=== PATIENT | female | born 1975 | race Two or more races ===

== ENCOUNTER 2019-07-28 08:00 | Inpatient (IN) | payer OTHER ==
[~2019-07-28 08:00] MED LIST: LEVOTHYROXINE NA 75 MCG TABLET (FP) PO SCH
[2019-07-28] MEDS ORDERED: AMPICILLIN SODIUM 2 GM VIAL ONE (08:23)
[2019-07-28 08:43] VITALS: BMI 30.7
[2019-07-28 08:51] LABS: BASO % 0.8 % (0-2.0); EOS % 0.5 % (0-4.5); HEMATOCRIT 37.6 % (32.4-45.2); HEMOGLOBIN 12.7 GM/dL (10.7-15.3); LYMPH % 11.7 % (8-40); MCH 30.7 pg (25.7-33.7); MCHC 33.8 g/dl (32.0-36.0); MEAN CELL VOLUME 90.6 fl (80-96); MEAN PLT VOLUME 11.1 fl (7.5-11.1); MONO % 5.1 % (3.8-10.2); NEUT % 81.9 % (42.8-82.8); PLATELET COUNT 145 K/MM3 (134-434); RBC 4.14 M/mm3 (3.60-5.2); RDW 15.5 % (11.6-15.6); WHITE BLOOD COUNT 11.5 K/mm3 (4.0-10.0)
[2019-07-28 09:03] LABS: BLOOD UREA NITROGEN 7.1 mg/dL (7-18); CALCIUM 9.1 mg/dL (8.5-10.1); CREATININE 0.5 mg/dL (0.55-1.3); POTASSIUM 3.9 mmol/L (3.5-5.1)
--- NOTE | 2019-07-28 09:04 | HP ---
Past Medical History - Admission History of Present Illness: 43 y/o with SIUP at 37.4 weeks here in labor. complicated by hypothyroidism, GBS positive and AMA. H/o X 1 and SAB X 2. History Source: Patient, Medical Record Limitations to Obtaining History: No Limitations - Past Medical History Cardiovascular: No: HTN, [place] Pulmonary: No: Asthma, COPD Hepatobiliary: No: Hepatitis B, Hepatitis C Renal/: No: UTI Reproductive: No: Fibroids, PID ...: 4 ...Para: 1 ...Term: 1 ...: 0 ...Spon : 2 ...Induced : 0 ...Multiple Gestation: 0 ...EDC by [facility]: 08/14/19 Heme/Onc: No: Anemia Psych: No: Anxiety, Bipolar, Depression Endocrine: Yes: Hypothyroidism - Past Surgical History Past Surgical History: Yes: None Hx Myomectomy: No Hx Transabdominal Cerclage: No - Smoking History Smoking history: Never smoked Have you smoked in the past 12 months: No - Alcohol/Substance Use Hx Alcohol Use: No History of Substance Use: reports: None - Social History History of Recent Travel: No Home Medications - Allergies Allergies/Adverse Reactions: Allergies Allergy/AdvReac Type Severity Reaction Status Date / Time No Known Allergies Allergy Verified 07/30/16 14:16 - Home Medications Home Medications: Ambulatory Orders Levothyroxine [Synthroid -] 75 mcg PO DAILY 08/16/15 Vit/Iron Fum/Folic AC [ Tablet] 1 tab PO DAILY 07/30/16 Review of Systems - Review of Systems Constitutional: reports: No Symptoms Eyes: reports: No Symptoms HENT: reports: No Symptoms Neck: reports: No Symptoms Cardiovascular: reports: No Symptoms Respiratory: reports: No Symptoms Gastrointestinal: reports: No Symptoms Genitourinary: reports: No Symptoms Breasts: reports: No Symptoms Reported Musculoskeletal: reports: No Symptoms Integumentary: reports: No Symptoms Neurological: reports: No Symptoms Endocrine: reports: No Symptoms Hematology/Lymphatic: reports: No Symptoms Psychiatric: reports: No Symptoms Physical Exam - Maternity Vital Signs: Vital Signs Temperature 98.4 F 07/28/19 08:19 Pulse Rate 75 07/28/19 08:19 Respiratory Rate 20 07/28/19 08:19 Blood Pressure 136/90 07/28/19 08:19 O2 Sat by Pulse Oximetry (%) Constitutional: Yes: Well Nourished, No Distress, Calm Eyes: Yes: Conjunctiva Clear, EOM Intact HENT: Yes: Atraumatic, Normocephalic Neck: Yes: Supple, Trachea Midline Cardiovascular: Yes: Regular Rate and Rhythm Lungs: Clear to auscultation Breast(s): Yes: WNL - Abdominal Exam/OB Fundal Height: 37 Number of Fetuses: Single Presentation: Vertex Contractions: Yes Regularity: Regular Intensity: Mod/Strong Category: I Accelerations: Uniform Decelerations: None - Vaginal Exam/OB Speculum Exam: No Dilatation (cm): 7 Effacement (%): 80 Amniotic Membrane Status: Ruptured Nitrazine Test: Positive Amniotic Fluid: Yes: Clear Presentation: Vertex/Position - Physical Exam Psychiatric: Yes: Alert, Oriented - Labs Lab Results: CBC, BMP 07/28/19 08:25 Hemorrhage Risk Assessment - Risk Factors Medium Risk Factors: Yes: None High Risk Factors: Yes: None Risk Score: 1 Risk Level: Medium Risk Problem List - Problems (1) Active labor at term Code(s): [id number] - (2) AMA (advanced maternal age) multigravida 35+ Code(s): O09.529 - SUPERVISION OF ELDERLY MULTIGRAVIDA, UNSPECIFIED TRIMESTER (3) GBS (group B Streptococcus carrier), +RV culture, currently Code(s): O99.820 - STREPTOCOCCUS B CARRIER STATE COMPLICATING Assessment/Plan 43 y/o with SIUP at 37.4 weeks, labor FHTS at 1 admitted to L&D GBS positive, started ampicillin anticipate
[2019-07-28] MEDS ORDERED: AMPICILLIN - 2 GM in SODIUM CHLORIDE 100 ML IVPB ONE (09:05)
[2019-07-28 09:08] LABS: INR 0.9 (0.83-1.09); PROTHROMBIN TIME (PATIENT) 10.6 SEC (9.7-13.0)
[2019-07-28 09:11] LABS: ACTIVATED PTT 27.5 SECONDS (25.2-36.5)
[2019-07-28] MEDS ORDERED: ELECTROLYTE-148 SOLN 1,000 ML IV SCH (09:15)
[2019-07-28] MEDS ORDERED: LIDOCAINE HCL 1% PRESERVATIVE FREE - 30ML VIAL ONE (09:42)
[2019-07-28] MEDS ORDERED: OXYTOCIN 20 UNITS in 0.9% NS 20 UNIT/1,000 ML INFUS.BAG IV ONE (09:42)
--- NOTE | 2019-07-28 10:32 | PN ---
Delivery - Delivery Vaginal Delivery: No Problems Type of Anesthesia: Local Episiotomy/Laceration: 2nd degree EBL (cc): 250 Delivery, Single - Stages of Labor Date of Delivery: 07/28/19 Time of Delivery: 10:13 Date Placenta Delivered: 07/28/19 Time Placenta Delivered: Placenta: Yes: Spontaneous - Condition of Word Processor Technician/Semiconductor Processing Group Leader Present: No Infant Gender: Male Position: Left, OA - 1 Minute Total Score: 9 5 Minutes Total Score: 9 - [place] Feeding Plan Initial Plan: Elected not to breastfeed exclusively throughout hospitalization Remarks - Remarks Remarks: Uncomplicated of baby boy from AVINASH position anterior shoulder (right) delivered with ease along with remainder of 3vc noted, clamped and cut after 1 minute of delayed cord clamping 2nd degree lac noted, repaired with 2-0 chromic in usual fashion placenta delivered in tact spontaneously sponge and needle count correct mom stable baby to well baby nursery oxytocin infusing after delivery
[2019-07-28] MEDS ORDERED: METHYLERGONOVINE MALEATE 0.2 MG/1 ML AMP IM PRN (10:58)
[2019-07-28] MEDS ORDERED: BENZOCAINE 28 GM HEMORRHOIDAL OINTMENT TP PRN (10:58)
[2019-07-28] MEDS ORDERED: BENZOCAINE 20% 57 GM BOTTLE TP PRN (10:58)
[2019-07-28] MEDS ORDERED: BISACODYL 10 MG SUPP.RECT RC PRN (10:58)
[2019-07-28] MEDS ORDERED: ACETAMINOPHEN 325 MG TABLET (FP) PO PRN (10:58)
[2019-07-28] MEDS ORDERED: IBUPROFEN 600 MG TABLET (FP) PO PRN (10:58)
[2019-07-28] MEDS ORDERED: WITCH HAZEL 50% (TUCKS) 40 PAD/JAR PAD TP PRN (10:58)
[2019-07-28] MEDS ORDERED: OXYTOCIN 20 UNITS in 0.9% NS 20 UNIT/1,000 ML INFUS.BAG IV SCH (11:00)
[2019-07-29] MEDS: LEVOTHYROXINE NA 75 MCG TABLET (FP) PO SCH (06:20)
--- NOTE | 2019-07-29 07:41 | PN ---
Post Progress Note - Subjective Subjective: Pt seen/evaluated and doing well. NO complaints. Denies pain. Tolerating diet. Ambulating and voiding. Type of Delivery: Vital Signs: Vital Signs Temperature 98.6 F 07/29/19 06:12 Pulse Rate 74 07/29/19 06:12 Respiratory Rate 18 07/29/19 06:12 Blood Pressure 111/67 07/29/19 06:12 O2 Sat by Pulse Oximetry (%) 100 07/28/19 11:15 Uterus: Yes: Fundus Firm Abdomen/GI: Yes: Abdomen soft Lochia: Yes: Rubra Lochia, amount: Small Extremities: Yes: Calves non-tender Perineum: Yes: Laceration Activity: Ambulating - Labs Labs: CBC WBC 11.5 K/mm3 (4.0-10.0) H 07/28/19 08:25 RBC 4.14 M/mm3 (3.60-5.2) 07/28/19 08:25 Hgb 12.7 GM/dL (10.7-15.3) 07/28/19 08:25 Hct 37.6 % (32.4-45.2) D 07/28/19 08:25 MCV 90.6 fl (80-96) 07/28/19 08:25 MCH 30.7 pg (25.7-33.7) 07/28/19 08:25 MCHC 33.8 g/dl (32.0-36.0) 07/28/19 08:25 RDW 15.5 % (11.6-15.6) 07/28/19 08:25 Plt Count 145 K/MM3 (134-434) D 07/28/19 08:25 MPV 11.1 fl (7.5-11.1) 07/28/19 08:25 Absolute Neuts (auto) 9.4 K/mm3 (1.5-8.0) H 07/28/19 08:25 Neutrophils % 81.9 % (42.8-82.8) 07/28/19 08:25 Lymphocytes % 11.7 % (8-40) 07/28/19 08:25 Monocytes % 5.1 % (3.8-10.2) 07/28/19 08:25 Eosinophils % 0.5 % (0-4.5) D 07/28/19 08:25 Basophils % 0.8 % (0-2.0) 07/28/19 08:25 Nucleated RBC % 0 % (0-0) 07/28/19 08:25 Problem List - Problems (1) Active labor at term Code(s): PII1658 - (2) AMA (advanced maternal age) multigravida 35+ Code(s): O09.529 - SUPERVISION OF ELDERLY MULTIGRAVIDA, UNSPECIFIED TRIMESTER (3) GBS (group B Streptococcus carrier), +RV culture, currently Code(s): O99.820 - STREPTOCOCCUS B CARRIER STATE COMPLICATING (4) Vaginal delivery Code(s): O80 - ENCOUNTER FOR FULL-TERM UNCOMPLICATED DELIVERY Assessment/Plan regular diet PO pain meds await [facility] routine care
[2019-07-29 08:40] LABS: BASO % 0.8 % (0-2.0); EOS % 0.9 % (0-4.5); HEMATOCRIT 33.4 % (32.4-45.2); LYMPH % 21.3 % (8-40); MCH 30.3 pg (25.7-33.7); MEAN CELL VOLUME 91.7 fl (80-96); MEAN PLT VOLUME 11.5 fl (7.5-11.1); PLATELET COUNT 154 K/MM3 (134-434); RBC 3.64 M/mm3 (3.60-5.2); RDW 15.8 % (11.6-15.6); WHITE BLOOD COUNT 11.1 K/mm3 (4.0-10.0)
[2019-07-29] MEDS: PRENATAL VITAMINS W/ FOLIC ACID TABLET (FP) PO SCH (09:48)
[2019-07-29] MEDS ORDERED: SENNOSIDES/DOCUSATE COMBO (SENNA PLUS) TABLET (UD) PO PRN (22:00)
[2019-07-30] MEDS: LEVOTHYROXINE NA 75 MCG TABLET (FP) PO SCH (06:21)
[2019-07-30 08:40] VITALS: BP 122/72; PULSE 67; TEMP 98.2
[2019-07-30] MEDS: PRENATAL VITAMINS W/ FOLIC ACID TABLET (FP) PO SCH (09:16)
--- NOTE | 2019-07-30 11:34 | DS ---
Physical Exam-BUFFER COPPER Vital Signs: Vital Signs Temperature 98.2 F 07/30/19 07:30 Pulse Rate 67 07/30/19 07:30 Respiratory Rate 18 07/30/19 07:30 Blood Pressure 122/72 07/30/19 07:30 O2 Sat by Pulse Oximetry (%) 100 07/28/19 11:15 Constitutional: Yes: Well Nourished, No Distress Gastrointestinal: Yes: WNL Labs: CBC, BMP 07/29/19 07:53 07/28/19 08:25 Delivery - Delivery Vaginal Delivery: No Problems Type of Anesthesia: Local Episiotomy/Laceration: 2nd degree EBL (cc): 250 Delivery, Single - Stages of Labor Date 1st Stage Initiatied: 07/28/19 Time 1st Stage Initiated: 04:00 Date 2nd Stage Initiated: 07/28/19 Time 2nd Stage Initiated: 10:05 Date of Delivery: 07/28/19 Time of Delivery: 10:13 Time Placenta Delivered: 10:20 Placenta: Yes: Spontaneous - Condition of Tick Eradicator/Research Project Manager Present: No Infant Gender: Male Weight: 6 lb 9 oz Position: Left, OA Total Hours ROM (Hrs/Mins): 1h55m - 1 Minute Total Score: 9 5 Minutes Total Score: 9 - Feeding Plan Initial Plan: Elected not to breastfeed exclusively throughout hospitalization Discharge Summary Problems reviewed: Yes Reason For Visit: LABOR Current Active Problems AMA (advanced maternal age) multigravida 35+ (Acute) Active labor at term (Acute) GBS (group B Streptococcus carrier), +RV culture, currently (Acute) Vaginal delivery (Acute) Procedures: Principal: Normal vaginal delivery Hospital Course: unremarkable Condition: Good - Instructions Disposition: HOME - Home Medications Comprehensive Discharge Medication List: Ambulatory Orders Levothyroxine [Synthroid -] 75 mcg PO DAILY 08/16/15 Vit/Iron Fum/Folic AC [ Tablet] 1 tab PO DAILY 07/30/16 Ibuprofen [Motrin -] 600 mg PO QID #28 tablet 07/30/19
== END 2019-07-30 12:10 | disposition home or self-care (01) | DRG 560 ==
LOC: JLDR 08:00 → J3W 11:53
PROVIDERS: ADMIT Obstetrics & Gynecology; ATTEND Obstetrics & Gynecology
PROC: 10E0XZZ Delivery of Products of Conception, External Approach (ICD-10-PCS; principal; 2019-07-28)
PROC: 0KQM0ZZ Repair Perineum Muscle, Open Approach (ICD-10-PCS; 2019-07-28)
DX: O99.284 Endocrine, nutritional and metabolic diseases complicating childbirth (principal); E03.9 Hypothyroidism, unspecified; O99.824 Streptococcus B carrier state complicating childbirth; Z3A.37 37 weeks gestation of pregnancy; O70.1 Second degree perineal laceration during delivery; Z37.0 Single live birth
CPT/HCPCS: 36415; 59409; 80048; 85025; 85610; 85730; 86593; 86850; 86900; 86901

== ENCOUNTER 2022-09-11 17:09 | Emergency (ER) | payer OTHER ==
[2022-09-11 17:22] VITALS: BP 133/73; PULSE 63; RESP 18; TEMP 98; BMI 28.0
[2022-09-11] MEDS ORDERED: DIPHTH,PERTUSS(ACELL),TET 0.5 ML DISP.SYRIN IM ONE ×2 (19:07→19:11)
== END 2022-09-11 19:18 | disposition home or self-care (01) ==
LOC: JERFT 17:09 → JER 17:09 → JERFT 19:18
PROC: 3E0234Z Introduction of Serum, Toxoid and Vaccine into Muscle, Percutaneous Approach (ICD-10-PCS; principal; 2022-09-11)
DX: S61.412A Laceration without foreign body of left hand, initial encounter (principal); W23.0XXA Caught, crushed, jammed, or pinched between moving objects, initial encounter
CPT/HCPCS: 90471; 90715; 99284-25